=== PATIENT | female | born 1995 | race Caucasian/White ===

== ENCOUNTER → 2017-04-07 | Outpatient (CLI) | payer BC ==
[2017-04-07 07:15] LABS: Basophils % (A) 1 %; CH 31.4; CHCM 34.1; Eosinophils # (A) 0.2 k/uL (0-0.7); Eosinophils % (A) 3 %; HCT 40.4 % (34.0-46.0); HDW 2.43; HGB 13.7 gm/dL (11.4-16.0); Luc # (Auto) 0.15; Luc % (Auto) 2; Lymphocytes # (A) 1.8 k/uL (1.0-4.8); Lymphocytes % (A) 27 %; MCH 31.3 pg (25.0-35.0); MCHC 33.9 g/dL (31.0-37.0); MCV 92.4 fL (80.0-100.0); Mean Platelet Volume 7.7; Monocytes # (A) 0.7 k/uL (0-1.0); Monocytes % (A) 10 %; Neutrophils # (A) 3.7 k/uL (1.3-7.7); Neutrophils % (A) 57 %; RBC 4.37 m/uL (3.80-5.40); RDW 13.5 % (11.5-15.5); WBC 6.5 k/uL (4.0-11.0); WBC (Perox) 6.19
[2017-04-07 11:13] LABS: ALT 36 U/L (9-52); AST 21 U/L (14-36); Alkaline Phosphatase 73 U/L (38-126); Anion Gap 9 mmol/L; Blood Urea Nitrogen 10 mg/dL (7-17); Calcium 9.2 mg/dL (8.4-10.2); Carbon Dioxide 25 mmol/L (22-30); Chloride 105 mmol/L (98-107); Cholesterol 115 mg/dL (<200); Glucose 83 mg/dL (74-99); HDL Cholesterol 41 mg/dL (40-60); Non-African American GFR(MDRD) >60 (>60 ml/min/1.73 sqM); Sodium 139 mmol/L (137-145); Total Bilirubin 0.7 mg/dL (0.2-1.3); Triglycerides 60 mg/dL (<150)
[2017-04-07 11:26] LABS: Follicle Stimulating Hormone 4.3 mIU/mL; Prolactin 35.9 ng/mL (3.0-18.6)
[2017-04-07 11:57] LABS: Vitamin B12 325 pg/mL (239-931)
== END | disposition home or self-care (01) ==
LOC: LABWHC1 06:45
PROVIDERS: ATTEND Family Medicine
DX: Z00.00 Encounter for general adult medical examination without abnormal findings (principal); N93.9 Abnormal uterine and vaginal bleeding, unspecified; L65.0 Telogen effluvium
CPT/HCPCS: 36415; 80053; 80061; 82607; 82626; 83001; 83002; 84144; 84146; 84403; 84439; 84443; 85025

== ENCOUNTER → 2017-05-03 | Outpatient (CLI) | payer BC ==
--- NOTE | 2017-05-03 23:23 | MR ---
EXAMINATION TYPE: MR pituitary wo/w con DATE OF EXAM: 05/03/2017 COMPARISON: NONE HISTORY: Hyperprolactinemia TECHNIQUE: Multiplanar, multisequence images of the brain and brainstem is performed without and with IV contras t, utilizing 18 mL intravenous MultiHance . FINDINGS: Pituitary fossa has normal size. Pituitary stalk is in the midline. Optic chiasm appears no rmal. There is a slight convex superior surface of the pituitary gland. There is a rounded 4 mm focus of increased signal on the right side of the pituitary gland near the midline on T2 images. This has low signal on T1 and does not enhance. There is a second 3 mm rounded focus of decreased enhancement in the inferior pituitary gland on the left side of midline. This is isointense with the pituitary gland on the T2 images. The lateral ventricles have normal size. Third ventricle appears normal. IMPRESSION: 4 mm nonenhancing fluid signal rounded lesion in the pituitary gland close to the midline on the righ t side. 3 mm nonenhancing isointense focus in the inferior pituitary gland on the left of midline. Th e smaller lesion could potentially be pituitary microadenomas. 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
== END | disposition home or self-care (01) ==
LOC: RADMRIMAIN 20:41
PROVIDERS: ATTEND Family Medicine
DX: E23.6 Other disorders of pituitary gland (principal); E22.1 Hyperprolactinemia
CPT/HCPCS: 70553; A9577

== ENCOUNTER → 2018-01-16 | Outpatient (CLI) | payer BC ==
[2018-01-17 10:45] LABS: Alt. alternata IgE Class CLASS IV; Asperg. fumagatus IgE <0.35 kU/L (<0.35); Asperg. fumagatus IgE Class CLASS 0; Bermuda Grass IgE <0.35 kU/L (<0.35); Birch(Com.Silvr) IgE <0.35 kU/L (<0.35); Birch(Com.Silvr) IgE Class CLASS 0; Cat Epith & Dander IgE 0.65 kU/L (<0.35); Cat Epith & Dander IgE Class CLASS I; Clad herbarum IgE <0.35 kU/L (<0.35); Cockroach IgE <0.35 kU/L (<0.35); Cottonwood IgE <0.35 kU/L (<0.35); Dermato. Pteronyssinus IgE 6.47 kU/L (<0.35); Dermato. farinae IgE 5.41 kU/L (<0.35); Dermato. farinae IgE Class CLASS III; Dog Dander IgE <0.35 kU/L (<0.35); Elm IgE <0.35 kU/L (<0.35); Maple (Box Elder) IgE <0.35 kU/L (<0.35); Maple (Box Elder) IgE Class CLASS 0; Mountain Cedar IgE <0.35 kU/L (<0.35); Mountain Cedar IgE Class CLASS 0; Mouse Urine IgE Class CLASS 0; Nettle IgE <0.35 kU/L (<0.35); Nettle IgE Class CLASS 0; Oak IgE <0.35 kU/L (<0.35); Penicillium notatum IgE Class CLASS 0; Rough Marshelder IgE 0.48 kU/L (<0.35); Rough Marshelder IgE Class CLASS I; Timothy Grass IgE <0.35 kU/L (<0.35); White Ash IgE Class CLASS 0
== END | disposition home or self-care (01) ==
LOC: LABWHC1 09:56
PROVIDERS: ATTEND Family Medicine
DX: J30.9 Allergic rhinitis, unspecified (principal)
CPT/HCPCS: 36415; 82785; 86001; 86003; 86606; 86609

== ENCOUNTER → 2018-01-29 | Outpatient (CLI) | payer BC ==
[2018-01-29 10:06] LABS: Basophils % (A) 1 %; Eosinophils # (A) 0.1 k/uL (0-0.7); Eosinophils % (A) 2 %; HCT 42.4 % (34.0-46.0); HGB 14.2 gm/dL (11.4-16.0); Lymphocytes # (A) 1.6 k/uL (1.0-4.8); Lymphocytes % (A) 27 %; MCH 30.5 pg (25.0-35.0); MCHC 33.4 g/dL (31.0-37.0); MCV 91.3 fL (80.0-100.0); Mean Platelet Volume 7.1; Monocytes # (A) 0.5 k/uL (0-1.0); Monocytes % (A) 8 %; Neutrophils # (A) 3.5 k/uL (1.3-7.7); Neutrophils % (A) 60 %; Platelet Count 304 k/uL (150-450); RBC 4.64 m/uL (3.80-5.40); RDW 12.2 % (11.5-15.5); WBC 5.8 k/uL (3.8-10.6)
[2018-01-29 10:26] LABS: Anion Gap 16 mmol/L; Blood Urea Nitrogen 12 mg/dL (7-17); Calcium 9.1 mg/dL (8.4-10.2); Carbon Dioxide 24 mmol/L (22-30); Chloride 104 mmol/L (98-107); Glucose 80 mg/dL (74-99); Potassium 4.2 mmol/L (3.5-5.1); Sodium 144 mmol/L (137-145)
== END | disposition home or self-care (01) ==
LOC: LABWHC1 08:46
PROVIDERS: ATTEND Family Medicine
DX: E22.1 Hyperprolactinemia (principal); J30.9 Allergic rhinitis, unspecified
CPT/HCPCS: 36415; 80048; 82607; 82626; 84146; 84403; 84443; 85025

== ENCOUNTER → 2018-01-31 | Outpatient (CLI) | payer OTHER, BC ==
--- NOTE | 2018-02-01 08:07 | XR ---
EXAMINATION TYPE: XR sacroiliac joint comp BILAT DATE OF EXAM: 01/31/2018 COMPARISON: NONE HISTORY: Pain TECHNIQUE: 3 views are submitted FINDINGS: SI joints are symmetric. Sacrum is intact. There is no evidence of sclerosis or erosive fabrice nge. Osseous structures intact. IMPRESSION: No abnormality noted.
--- NOTE | 2018-02-01 08:08 | XR ---
EXAM TYPE: LUMBAR SPINE X RAY SERIES COMPARISON: NONE HISTORY: Pain TECHNIQUE: Three views are submitted. FINDINGS: Alignment is anatomic. The pedicles are intact. The transverse processes are intact. There is no s pondylolisthesis. IMPRESSION: 1. No acute process.
== END | disposition home or self-care (01) ==
LOC: RADXRMAIN 16:23
PROVIDERS: ATTEND Family Medicine
DX: M54.5 Low back pain (principal)
CPT/HCPCS: 72100; 72202

== ENCOUNTER → 2018-02-14 | Outpatient (CLI) | payer BC ==
--- NOTE | 2018-02-15 07:12 | US ---
EXAMINATION TYPE: US transvaginal DATE OF EXAM: 02/14/2018 COMPARISON: NONE CLINICAL HISTORY: R10.2 PELVIC PAIN. TECHNIQUE: Transvaginal sonographic images were acquired. Date of LMP: About 1-2 weeks ago EXAM MEASUREMENTS: Uterus: 5.9 x 2.6 x 3.4 cm Endometrial Stripe: 0.9 cm Right Ovary: 3.8 x 2.0 x 1.4 cm Left Ovary: 2.1 x 1.2 x 1.7 cm 1. Uterus: Anteverted wnl 2. Endometrium: wnl 3. Right Ovary: Multiple follicles visualized 4. Left Ovary: Dominant follicle visualized measuring 1.8 x 1.3 x 1.4 cm 5. Bilateral Adnexa: wnl 6. Posterior cul-de-sac: wnl IMPRESSION: Dominant left ovarian follicle measuring 1.8 cm, otherwise unremarkable transvaginal pelv ic ultrasound.
== END | disposition home or self-care (01) ==
LOC: RADUSWWP 16:10
PROVIDERS: ATTEND Family Medicine
DX: R10.2 Pelvic and perineal pain (principal)
CPT/HCPCS: 76830